=== PATIENT | female | born 1955 | race Caucasian/White ===

== ENCOUNTER 2017-09-04 10:16 | Outpatient (CLI) | payer OTHER ==
--- NOTE | 2017-09-04 12:20 | MMO ---
BILATERAL DIGITAL SCREENING MAMMOGRAMS: HISTORY: This 62-year-old female presents for digital screening mammography. COMPARISON: 07/06/16, 04/27/15, 10/15/12, 10/11/11, 10/09/10. This patient's mammogram is interpreted with the assistance of computer-aided detection. Scattered areas if fibroglandular density are noted bilaterally. Stable typically benign calcificati ons are noted. There are stable multiple bilateral parenchymal density asymmetries. IMPRESSION: BI-RADS category 2, benign findings. Continued routine screening. POS: [facility]
== END 2017-09-04 10:17 | disposition home or self-care (01) ==
LOC: MAMMO 10:16
DX: Z12.31 Encounter for screening mammogram for malignant neoplasm of breast (principal)
CPT/HCPCS: 77067; G0202

== ENCOUNTER 2018-10-09 14:46 | Outpatient (CLI) | payer OTHER | END 2018-10-09 14:47 | disposition home or self-care (01) | LOC: BICMAMMO 14:46 | DX: Z12.31 Encounter for screening mammogram for malignant neoplasm of breast (principal) | CPT/HCPCS: 77063; 77067 ==

== ENCOUNTER 2018-10-10 13:23 | Outpatient (CLI) | payer OTHER ==
--- NOTE | 2018-10-10 15:41 | BD ---
Exam: DEXA Bone Density 10/10/18 HISTORY: 63-year-old postmenopausal female for screening. FINDINGS: Lumbar Spine: BMD (g/cm2) L1 0.940 T-Score: -0.5 L2 0.974 T-Score: -0.5 L3 1.188 T-Score: -0.9 L4 1.225 T-Score: 1.5 L1-L4 1.095 T-Score: 0.4 Left Femoral Neck: 0.836 T-Score: -0.1 Total Proximal Femur: 0.980 T-Score: 0.3 Impression: Kathy bone mineral density. POS: [facility]
== END 2018-10-10 13:24 | disposition home or self-care (01) ==
LOC: BICMAMMO 13:23
DX: Z78.0 Asymptomatic menopausal state (principal)
CPT/HCPCS: 77080

== ENCOUNTER 2018-12-27 12:32 | Observation (INO) | payer OTHER ==
[2018-12-27 13:01] LABS: #Basophils 0.1 thou/uL (0.0-0.2); #Eosinphils 0.5 thou/uL (0.0-0.7); #Lymphocytes 1.5 thou/uL (1.20-3.40); #Monocytes 0.5 thou/uL (0.11-0.59); #Neutrophils 2.7 thou/uL (1.40-6.50); %Basophils 1.7 % (0.0-1.0); %Eosinophils 8.7 % (0.0-10.0); %Lymphocytes 28.9 % (21.0-51.0); %Monocytes 9.9 % (0.0-10.0); %Neutrophils 50.8 % (42.0-75.0); Mean Corpuscular Hemoglobin 28.6 pg (27.0-31.0); Mean Corpuscular Volume 89.2 fL (78.0-98.0); Mean Platelet Volume 7.7 fL (7.4-10.4); Platelet Count 234 thou/uL (130-400); RBC Distribution Width 12.4 % (11.5-14.5); Red Blood Cell (RBC) Count 4.91 mill/uL (4.20-5.40); White Blood Cell (WBC) Count 5.2 thou/uL (4.8-10.8)
[2018-12-27] MEDS ORDERED: Nitroglycerin 0.4 MG TAB 1 EACH ONE (13:16)
[2018-12-27] MEDS ORDERED: Aspirin Chewable 81 MG TAB ONE (13:16)
[2018-12-27] MEDS ORDERED: Nitroglycerin 2% Ointment 1 INCH/1 GM Packet ONE (13:16)
[2018-12-27 13:23] LABS: ALT (SGPT) 19 U/L (8-55); AST (SGOT) 23 U/L (5-34); Albumin 4.2 g/dL (3.4-4.8); Alkaline Phosphatase 127 U/L (40-150); Anion Gap 11 mmol/L (10-20); BUN (Urea Nitrogen) 14 mg/dL (9.8-20.1); Bilirubin, Total 1.2 mg/dL (0.2-1.2); CK (CPK) 81 U/L (29-168); Calc. Creatinine Clearance 0 mL/min (70-130); Calcium 9.6 mg/dL (7.8-10.44); Carbon Dioxide 28 mmol/L (23-31); Chloride 103 mmol/L (98-107); Estimated GFR-MDRD 77; Globulin 2.9 g/dL (2.4-3.5); Glucose 91 mg/dL (80-115); Lipase 19 U/L (8-78); Potassium 4.1 mmol/L (3.5-5.1); Protein, Total 7.1 g/dL (6.0-8.3); Sodium 138 mmol/L (136-145)
--- NOTE | 2018-12-27 13:29 | RAD ---
PORTABLE CHEST: Date: 12/27/18 INDICATION: Chest pain. COMPARISON: 03/24/16. FINDINGS/IMPRESSION: Lungs appear clear. No infiltrate or vascular congestion. No significant change when compared to prio r study. Density in the medial right lung base probably represents a cardiac fat pad and appears stab le from prior study. POS: [facility]
[2018-12-27 16:38] LABS: Troponin I Less than 0.010 ng/mL (< 0.028)
[2018-12-27] MEDS ORDERED: Ondansetron PF 4 MG/2 ML Vial IVP PRN (18:03)
[2018-12-27] MEDS ORDERED: Guaifenesin DM 100-10/5 ML UDCUP PO PRN (18:03)
[2018-12-27] MEDS ORDERED: (Diclofenac Sodium [Voltaren] 100 GM) TOP PRN (18:06)
[2018-12-27 18:37] VITALS: BMI 33.7
[2018-12-27 19:17] LABS: Troponin I Less than 0.010 ng/mL (< 0.028)
[2018-12-27] MEDS: HYDROcodone/Acetaminophen 5/325 mg Tablet PO PRN (19:20)
[2018-12-27] MEDS ORDERED: Nitroglycerin 2% Ointment 1 INCH/1 GM Packet TOP SCH (20:00)
[2018-12-27] MEDS ORDERED: URSODIOL 500 MG PO SCH (21:00)
[2018-12-27] MEDS: Hydroxychloroquine Sulfate 200 MG TAB PO SCH (21:16)
[2018-12-27] MEDS: Famotidine 20 MG TAB PO SCH (21:16)
--- NOTE | 2018-12-27 21:57 | HP ---
CHIEF COMPLAINT: Cough, neck and back pain. HISTORY OF PRESENT ILLNESS: The patient is a very pleasant 63-year-old female with past medical history significant for coronary artery disease, no history of stent or bypass, followed by Dr. Gomez; rheumatoid arthritis, primary biliary cirrhosis, hypertension, and hyperlipidemia, who presented to her PCP's office this afternoon with complaints of cough, neck pain, and back pain. She states that she began coughing yesterday. She denies any fever or chills, but states that because of her profuse coughing, her chest hurts when she coughs, and she woke up with some neck pain as well as some pain in her shoulder blades. She presented to her PCP 's office because she thought she needed some antibiotics, and the PCP was worried about her symptoms, so she sent her to the ER for further workup and treatment. On arrival to the ER, her blood work is largely unremarkable. No white count. Her hemoglobin is normal at 14. All of her electrolytes are normal and her troponin is negative. Her EKG shows normal sinus rhythm. There is no acute ST or T-wave changes or ischemia noted, it does show possible left atrial enlargement. Her chest x-ray showed that the lungs appeared to be clear. No infiltrate or vascular congestion. No significant change when compared to prior study. There is a density in the medial right lung base probably represents a cardiac fat pad and appear stable from a prior study. As mentioned, the patient only has chest pain when she coughs. Her neck pain is reproducible. She states that she felt somewhat improved with a breathing treatment in the ER. REVIEW OF SYSTEMS: A 12-point review of systems performed and is negative except that stated above. ALLERGIES: NO KNOWN DRUG ALLERGIES. MEDICATIONS: 1. Meloxicam 7.5 mg one tablet orally two times a day. 2. Ursodiol 500 mg tablet 1 tablet orally two times a day. 3. Duloxetine 20 mg one tablet orally two times a day. 4. Estradiol 1 mg tablet one tablet orally two times a day. 5. Metoprolol tartrate 25 mg one tablet p.o. b.i.d. 6. Flonase spray nasally once per day. 7. Zetia 10 mg tablet 1 tablet orally daily. 8. Crestor 5 mg one tablet at bedtime. 9. Prevacid 15 mg daily. 10. Diclofenac gel 3% topical. 11. Vitamin D 5000 units one time daily. 12. Hydroxychloroquine 2 tablets orally once a day, it is a 200 mg tablet. 13. Aspirin 81 mg daily. 14. Co-Q10 100 mg daily. 15. Cetirizine 5 mg one tablet daily. PAST MEDICAL HISTORY: 1. Coronary artery disease, small vessel disease per her description, followed by Dr. Gomez. 2. Rheumatoid arthritis. 3. Primary biliary cirrhosis. 4. Hypertension. 5. Hyperlipidemia. SOCIAL HISTORY: The patient lives with her in [place]. She does not smoke. She denies any alcohol or illicit drug use. CODE STATUS: The patient is a full code. This was discussed with the patient and her . FAMILY HISTORY: Noncontributory. PAST SURGICAL HISTORY: Trigger finger release x2, cataracts, hysterectomy, and orthopedic procedure on her left shoulder. REVIEW OF SYSTEMS: A 12-point review of systems performed and is negative except that stated above. PHYSICAL EXAMINATION: VITAL SIGNS: Blood pressure 138/65, pulse equals 60s, and O2 saturation 95% on room air. GENERAL: The patient is awake, alert, nontoxic appearing, resting comfortably in bed. HEAD AND FACE: Normocephalic, atraumatic. EYES: Extraocular movements intact. Normal conjunctivae. ENT: No nasal discharge. Mucous membranes moist. NECK: Trachea midline. No JVD. No lymphadenopathy. No carotid bruits. RESPIRATORY: Regular respiratory rate and pattern, occasional rhonchi, but upon coughing, she has clear sounds in all lung brown. ABDOMEN: Soft, nontender. Mildly obese. No guarding or rebound. SKIN: Warm and dry. Normal turgor. No obvious rashes or lesions. EXTREMITIES: +2 DP pulses bilaterally. No edema. CV: S1, S2. Regular rate and rhythm. No murmur or gallops. NEUROLOGIC: Cranial nerves 2 through 12 grossly intact. The patient is nonfocal. PSYCHIATRIC: She is alert and oriented x3. She has appropriate demeanor. LABORATORY DATA: Largely unremarkable. Her hemoglobin and hematocrit are normal at 14 and 43.7. She has no white count, it is 5.2. Sodium 138, potassium 4.1, anion gap 11, BUN 14, creatinine 0.76, GFR 77, and glucose 91. All of her liver function enzymes are within normal limits. Her troponin was negative. Albumin 4.2, lipase negative at 19. IMAGING STUDIES: Chest x-ray and EKG as outlined in the HPI. ASSESSMENT: 1. Atypical pleuritic chest pain secondary to acute bronchitis. 2. Acute bronchitis. 3. Coronary artery disease, small-vessel disease, stable, preserved EF, followed by Dr. Gomez, whom she sees q.6 months. 4. Rheumatoid arthritis, which is seronegative. 5. Primary biliary cirrhosis. 6. Hypertension. 7. Hyperlipidemia. PLAN: The patient will be admitted for pulmonary toilet, breathing treatments, Mucinex, and we will start levofloxacin 500 mg daily. Her enzymes are negative , and I anticipate discharge tomorrow morning. Care discussed with Dr. Lynne, who agrees with the plan. Job ID: [id number] [id number]
[2018-12-28] MEDS: HYDROcodone/Acetaminophen 5/325 mg Tablet PO PRN (03:06)
[2018-12-28 05:53] LABS: Anion Gap 8 mmol/L (10-20); BUN (Urea Nitrogen) 21 mg/dL (9.8-20.1); Calc. Creatinine Clearance 119 mL/min (70-130); Carbon Dioxide 30 mmol/L (23-31); Chloride 105 mmol/L (98-107); Estimated GFR-MDRD 76; Glucose 103 mg/dL (80-115); Potassium 4.3 mmol/L (3.5-5.1); Sodium 139 mmol/L (136-145)
[2018-12-28 08:35] VITALS: BP 138/68; TEMP 98
[2018-12-28 08:45] LABS: Band 2 % (5-11); Eosinophils 5 % (0-10); Hemoglobin 12.8 g/dL (12.0-16.0); Lymphocytes 41 % (21-51); MDiff Complete? YES; Mean Corpuscular HGB CONC 32.8 g/dL (32.0-36.0); Mean Corpuscular Hemoglobin 28.8 pg (27.0-31.0); Mean Corpuscular Volume 88.1 fL (78.0-98.0); Mean Platelet Volume 7.9 fL (7.4-10.4); Monocytes 13 % (0-10); Neutrophil 38 % (42-75); Platelet Count 215 thou/uL (130-400); RBC Distribution Width 12.2 % (11.5-14.5); Red Blood Cell (RBC) Count 4.43 mill/uL (4.20-5.40); White Blood Cell (WBC) Count 3.8 thou/uL (4.8-10.8)
[2018-12-28] MEDS: Famotidine 20 MG TAB PO SCH (08:52)
[2018-12-28] MEDS: Hydroxychloroquine Sulfate 200 MG TAB PO SCH (08:52)
[2018-12-28] MEDS ORDERED: Estradiol 1 MG TAB PO SCH (09:00)
[2018-12-28] MEDS ORDERED: Cholecalciferol (Vitamin D3) 400 UNITS TAB PO SCH (09:00)
[2018-12-28] MEDS ORDERED: Aspirin 81 mg Enteric Coated Tablet PO SCH (09:00)
[2018-12-28] MEDS ORDERED: Ezetimibe 10 MG TAB PO SCH (09:00)
[2018-12-28] MEDS ORDERED: Metoprolol Tartrate 25 MG TAB PO SCH (09:00)
[2018-12-28] MEDS ORDERED: Fluticasone Propionate Nasal Spray 16 gm Bottle NASAL SCH (09:00)
[2018-12-28] MEDS ORDERED: Loratadine 10 MG TAB PO SCH (09:00)
[2018-12-28] MEDS ORDERED: Ubidecarenone 50 MG CAP PO SCH (09:00)
[2018-12-28] MEDS ORDERED: Rosuvastatin 5 MG TAB PO SCH (09:00)
--- NOTE | 2018-12-28 21:01 | DIS ---
DATE OF ADMISSION: 12/27/2018 DATE OF DISCHARGE: 12/28/2018 ALLERGIES: NO KNOWN DRUG ALLERGIES. CHIEF COMPLAINT: Cough, neck and back pain. FINAL DIAGNOSES: 1. Atypical pleuritic chest pain secondary to acute bronchitis, improved. 2. Acute bronchitis/upper respiratory infection, improving. 3. Musculoskeletal neck pain, reproducible. 4. Coronary artery disease, small-vessel disease, stable, preserved ejection fraction, followed by Dr. Gomez, whom she sees q.6 months. 5. Rheumatoid arthritis, which is seronegative. 6. Primary biliary cirrhosis, stable. 7. Hypertension. 8. Hyperlipidemia. PROCEDURES PERFORMED: None. LABORATORY RESULTS: White blood cell count 3.8, hemoglobin 12.8, hematocrit 39. Sodium 139, potassium 4.3, chloride 105, carbon dioxide 30, anion gap 8, BUN 21, creatinine 0.77. Lipase 19. Troponin negative x2. Albumin 4.2. IMAGING RESULTS: Chest x-ray; lungs appear clear. No infiltrate or vascular congestion. Density in the medial right lung base represents a cardiac fat pad and appears stable from prior study. CONSULTATIONS: None. VITAL SIGNS: Blood pressure 130/67, O2 saturation 97% on room air, pulse 67, respirations are 18. HOSPITAL COURSE: The patient is a very pleasant 63-year-old female with past medical history significant for coronary artery disease, no history of stent or bypass, followed by Dr. Gomez; rheumatoid arthritis; primary biliary cirrhosis, stable; hypertension; and hyperlipidemia, who presented to her PCP's office this afternoon with complaints of cough, neck pain, and back pain. She states that she began coughing yesterday. Her chest pain was associated with her cough. She denies any fever or chills, but states that because of her profuse coughing, she presented to her PCP for further workup and treatment. Her neck pain seemed to have started when she woke up. It was exacerbated with movement. Her PCP sent her to the emergency room for further workup and treatment. On arrival to the ER, her blood work was largely unremarkable. She had no white count. She has remained afebrile. All of her electrolytes were in the normal range. Her troponin was negative x2. EKG showed sinus rhythm, no acute ST or T-wave changes noted. No ischemia noted. Her chest x-ray showed no infiltrates as described above. She was admitted for chest pain rule out as well as pulmonary toilet with breathing treatments, Mucinex, and antibiotics. This morning, the patient states that she does feel improved. She continues to cough some, but states it is improved. She denies any fevers. Her neck pain has been improving as well. She continues to have some mild musculoskeletal pain with moving, however, this is improving. PHYSICAL EXAMINATION: GENERAL: She is awake and alert, comfortable, in no acute distress. Mildly obese. HEENT: Atraumatic and normocephalic. Eye movements are intact. NECK: Supple. No lymphadenopathy. No JVD. Trachea is midline. RESPIRATORY: Respiratory sounds are clear to auscultation bilaterally. Regular respiratory rate and pattern. No rhonchi or wheezes. CARDIOVASCULAR: S1 and S2. Regular rate and rhythm. No murmurs, rubs, or gallops. GI: Soft and nontender. Positive bowel sounds. PERIPHERAL VASCULAR: No lower extremity edema. +2 DP pulses bilaterally. MUSCULOSKELETAL: The patient has full range of motion in her neck. She is nontender to palpation. No joint effusions or swelling. NEUROLOGIC: Awake and alert. Cranial nerves 2 through 12 grossly intact. No focal deficits. SKIN: Warm and dry. No skin discoloration or rashes. CONDITION AT DISCHARGE: Stable. DISCHARGE MEDICATIONS: She will continue her home medications includin. Meloxicam 7.5 mg 1 tablet orally 2 times daily. 2. Ursodiol 500 mg tablet 1 tablet orally 2 times a day. 3. Duloxetine 20 mg tablet 1 tablet orally 2 times a day. 4. Estradiol 1 mg tablet 1 tablet orally 2 times a day. 5. Metoprolol tartrate 1 tablet p.o. b.i.d. 6. Flonase spray once a day. 7. Zetia 10 mg tablet 1 tablet orally once daily. 8. Crestor 5 mg tablet at bedtime. 9. Prevacid 15 mg daily. 10. Diclofenac gel 3% topical. 11. Vitamin D of 5000 units 1 time daily. 12. Hydroxychloroquine 2 tablets orally once a day, this is a 200 mg tablet. 13. Aspirin 81 mg daily. 14. CoQ10 of 100 mg daily. 15. Cetirizine 5 mg 1 tablet daily. New prescriptions include: 1. Levofloxacin 500 mg 1 tablet p.o. x5 days. 2. Tessalon Perles 100 mg p.o. t.i.d. p.r.n. cough. 3. Cyclobenzaprine 5 mg p.o. t.i.d. p.r.n. muscle spasm/neck pain. DISCHARGE DISPOSITION: Home. PLAN: The patient will continue p.r.n. muscle relaxers and NSAIDs for her musculoskeletal neck pain. She will continue pulmonary toilet and her course of antibiotics for bronchitis. She will continue follow up with her primary care physician. She follows up with her curing pickling packer, Dr. Gomez every 6 months and actually has an appointment with him in 2 weeks. She will return to the ER for symptoms return or worsen. Care discussed with Dr. Lynne who agrees with the plan as outlined above. Job ID: [id number] [email or web address]
--- NOTE | 2019-01-03 18:42 | EKG ---
Test Reason : Blood Pressure : / mmHG Vent. Rate : 068 BPM Atrial Rate : 068 BPM P-R Int : 136 ms QRS Dur : 080 ms QT Int : 460 ms P-R-T Axes : 009 -13 043 degrees QTc Int : 489 ms Poor data quality, interpretation may be adversely affected Normal sinus rhythm Left atrial enlargement Borderline ECG Confirmed by YONG CROUCH, DAWNA Zhang ([id number]), tape editor CORINNA GRAHAM ([id number]) on 01/03/2019 6:41:57 PM Referred By: Confirmed By:DAWNA BEACH MD
== END 2018-12-28 10:45 | disposition home or self-care (01) ==
LOC: ERS 12:32 → 2SW 15:37
PROVIDERS: ADMIT Family Medicine; ATTEND Family Medicine
DX: J20.9 Acute bronchitis, unspecified (principal); I25.10 Atherosclerotic heart disease of native coronary artery without angina pectoris; M06.9 Rheumatoid arthritis, unspecified; K74.3 Primary biliary cirrhosis; I10 Essential (primary) hypertension; E78.5 Hyperlipidemia, unspecified; Z90.710 Acquired absence of both cervix and uterus; Z79.1 Long term (current) use of non-steroidal anti-inflammatories (NSAID); Z79.82 Long term (current) use of aspirin; Z79.818 Long term (current) use of other agents affecting estrogen receptors and estrogen levels; Z79.2 Long term (current) use of antibiotics; Z98.890 Other specified postprocedural states; Z79.899 Other long term (current) drug therapy
CPT/HCPCS: 36415; 71045; 80048; 80053; 82550; 83690; 84484; 85025; 93005; G0378; J7620

== ENCOUNTER 2020-12-02 09:50 | Outpatient (CLI) | payer OTHER ==
--- NOTE | 2020-12-02 10:29 | BD ---
EXAM: Bone densitometry using DEXA HISTORY: 65 yo female. Screening for postmenopausal osteoporosis FINDINGS: L1--bone mineral density 0.894 g/sq cm; T score -0.9 ; Z score 0.7 L2--bone mineral density 0.991 g/sq cm; T score -0.3 ; Z score 1.4 L3--bone mineral density 1.200 g/sq cm; T score 1.1 ; Z score 2.9 L4--bone mineral density 1.203 g/sq cm; T score 1.3 ; Z score 3.2 Total L1-L4--bone mineral density 1.086 g/sq cm; T score 0.4 ; Z score 2.1 Left femoral neck--bone mineral density0.776; T score -0.7 ; Z score 0.9 Total proximal left femur--bone mineral density 1.019; T score 0.6 ; Z score 1.9 There has been an interval reduction of 0.8% in the BMD of the lumbar spine and a improvement of 4% in the BMD of the proximal femur since the previous study of 10/10/2018. IMPRESSION: Normal BMD
== END 2020-12-02 09:51 | disposition home or self-care (01) ==
LOC: BICMAMMO 09:50
PROVIDERS: ATTEND Student in an Organized Health Care Education/Training Program
DX: Z13.820 Encounter for screening for osteoporosis (principal)
CPT/HCPCS: 77080

== ENCOUNTER 2021-01-23 14:51 | Outpatient (CLI) | payer OTHER | END 2021-01-23 14:52 | disposition home or self-care (01) | LOC: BICMAMMO 14:51 | PROVIDERS: ATTEND Student in an Organized Health Care Education/Training Program | DX: N63.20 Unspecified lump in the left breast, unspecified quadrant (principal) | CPT/HCPCS: 77066; G0279 ==

== ENCOUNTER 2021-10-12 10:43 | Outpatient (CLI) | payer MEDICARE, OTHER | END 2021-10-12 10:44 | disposition home or self-care (01) | LOC: ULT 10:43 | PROVIDERS: ATTEND Legal Medicine | DX: K74.3 Primary biliary cirrhosis (principal) | CPT/HCPCS: 76700 ==

== ENCOUNTER 2021-11-24 12:49 | Outpatient (CLI) | payer MEDICARE, OTHER | END 2021-11-24 12:50 | disposition home or self-care (01) | LOC: ULT 12:49 | PROVIDERS: ATTEND General Practice | DX: N18.30 Chronic kidney disease, stage 3 unspecified (principal) | CPT/HCPCS: 76770 ==

== ENCOUNTER 2022-10-16 13:08 | Outpatient (CLI) | payer MEDICARE, OTHER | END 2022-10-16 13:09 | disposition home or self-care (01) | LOC: RAD 13:08 | PROVIDERS: ATTEND Family Medicine | DX: R05.9 Cough, unspecified (principal) | CPT/HCPCS: 71046 ==

== ENCOUNTER 2022-11-26 15:41 | Outpatient (CLI) | payer MEDICARE, OTHER | END 2022-11-26 15:42 | disposition home or self-care (01) | LOC: BICULT 15:41 | PROVIDERS: ATTEND Internal Medicine Nephrology | DX: N18.30 Chronic kidney disease, stage 3 unspecified (principal) | CPT/HCPCS: 76770 ==

== ENCOUNTER 2023-08-30 13:33 | Outpatient (CLI) | payer MEDICARE, OTHER | END 2023-08-30 13:34 | disposition home or self-care (01) | LOC: BICMAMMO 13:33 | PROVIDERS: ATTEND Family Medicine | DX: Z13.820 Encounter for screening for osteoporosis (principal); Z78.0 Asymptomatic menopausal state; M85.89 Other specified disorders of bone density and structure, multiple sites | CPT/HCPCS: 77080 ==

== ENCOUNTER 2023-11-29 14:15 | Outpatient (CLI) | payer MEDICARE, OTHER | END 2023-11-29 14:16 | disposition home or self-care (01) | LOC: BICRAD 14:15 | PROVIDERS: ATTEND Nurse Practitioner Family | DX: J98.8 Other specified respiratory disorders (principal) | CPT/HCPCS: 71046 ==

== ENCOUNTER 2024-04-10 17:38 | Emergency (ER) | payer MEDICARE, OTHER ==
[2024-04-10 20:45] LABS: #Basophils 0.05 10x3/uL (0.0-0.2); %Basophils 0.8 % (0.0-1.0); %Lymphocytes 18.7 % (21.0-51.0); %Monocytes 10.9 % (0.0-10.0); %Neutrophils 64.4 % (42.0-75.0); Hematocrit 37.3 % (36.0-47.0); Hemoglobin 12.2 g/dL (12.0-16.0); Mean Corpuscular HGB CONC 32.7 g/dL (32.0-36.0); Mean Corpuscular Hemoglobin 30.7 pg (27.0-31.0); Mean Platelet Volume 10.2 fL (7.4-10.4); Platelet Count 174 10x3/uL (130-400); RBC Distribution Width 12.9 % (11.5-14.5); Red Blood Cell (RBC) Count 3.97 mill/uL (4.20-5.40)
[2024-04-10 21:05] LABS: ALT (SGPT) 16 U/L (8-55); AST (SGOT) 24 U/L (5-34); Albumin 3.7 g/dL (3.4-4.8); Alkaline Phosphatase 98 U/L (40-110); Anion Gap 11 mmol/L (10-20); BUN (Urea Nitrogen) 36 mg/dL (9.8-20.1); Bilirubin, Total 0.7 mg/dL (0.2-1.2); Calc. Creatinine Clearance 0 mL/min (70-130); Calcium 9.5 mg/dL (7.8-10.44); Carbon Dioxide 27 mmol/L (23-31); Chloride 104 mmol/L (98-107); Estimated GFR 37; Globulin 2.6 g/dL (2.4-3.5); Glucose 83 mg/dL (80-115); Lipase 31 U/L (8-78); Potassium 5.3 mmol/L (3.5-5.1); Protein, Total 6.3 g/dL (5.8-8.1); Sodium 137 mmol/L (136-145)
[2024-04-10 21:08] LABS: Troponin I Less than 0.010 ng/mL (< 0.028)
[2024-04-10] MEDS ORDERED: Aspirin Chewable 81 MG TAB ONE (21:09)
[2024-04-10 22:05] LABS: Bacteria/HPF None Seen HPF (None Seen); Bilirubin Negative (Negative); Blood, Urine Negative (Negative); CAUTI Indications for Culture Pelvic or flank pain; Clarity Clear (Clear); Glucose, Urine (Dipstick) Normal (Negative); Ketone, Urine Negative (Negative); Leukocyte Negative Leu/uL (Negative); Nitrite Negative (Negative); Protein, Urine (Dipstick) Negative (Neg-Trace); RBC/HPF 0-3 HPF (0-3); Specific Gravity, Urine 1.006 (1.002-1.036); Squamous Epithelial 0-3 HPF (0-3); Urobilinogen Normal mg/dL (Less than 2); WBC/HPF 0-3 HPF (0-3)
[2024-04-10 22:07] LABS: Urine Culture Reflex No No
== END 2024-04-10 22:59 | disposition home or self-care (01) ==
LOC: ERS 17:38
DX: M25.512 Pain in left shoulder (principal); N17.9 Acute kidney failure, unspecified; E86.0 Dehydration; Z55.6 Problems related to health literacy
CPT/HCPCS: 36415; 71045; 80053; 81001; 83690; 84484; 85025; 93005; 96360; 96361

== ENCOUNTER 2025-06-17 14:29 | Outpatient (CLI) | payer MEDICARE, OTHER | END 2025-06-17 14:30 | disposition home or self-care (01) | LOC: BICCT 14:29 | PROVIDERS: ATTEND Otolaryngology Plastic Surgery within the Head & Neck | DX: R09.81 Nasal congestion (principal); J32.3 Chronic sphenoidal sinusitis; R91.8 Other nonspecific abnormal finding of lung field ==

== ENCOUNTER 2025-07-28 15:27 | Outpatient (CLI) | payer MEDICARE, OTHER | END 2025-07-28 15:28 | disposition home or self-care (01) | LOC: BICMAMMO 15:27 | PROVIDERS: ATTEND Family Medicine | DX: Z12.31 Encounter for screening mammogram for malignant neoplasm of breast (principal) | CPT/HCPCS: 77063; 77067 ==

== ENCOUNTER 2025-08-24 14:51 | Outpatient (CLI) | payer MEDICARE, OTHER | END 2025-08-24 14:52 | disposition home or self-care (01) | LOC: BICMAMMO 14:51 | PROVIDERS: ATTEND Family Medicine | DX: M81.0 Age-related osteoporosis without current pathological fracture (principal); M85.852 Other specified disorders of bone density and structure, left thigh | CPT/HCPCS: 77080 ==

== ENCOUNTER 2025-09-11 19:56 | Emergency (ER) | payer MEDICARE, OTHER ==
[2025-09-11] MEDS ORDERED: Famotidine/PF 20 mg/2ml Vial ONE (20:26)
[2025-09-11] MEDS ORDERED: diphenhydrAMINE 50 MG/ML VIAL ONE (20:26)
== END 2025-09-11 23:08 | disposition home or self-care (01) ==
LOC: ERS 19:56
DX: T78.40XA Allergy, unspecified, initial encounter (principal); I10 Essential (primary) hypertension; Z79.82 Long term (current) use of aspirin; Z79.899 Other long term (current) drug therapy
CPT/HCPCS: 93005; J0169; J1200; J1308; J2919; 96372; 96374; 96375